=== PATIENT | female | born 1980 | race Caucasian/White ===

== ENCOUNTER 2016-09-01 04:04 | Emergency (ER) | payer BC ==
[~2016-09-01 04:04] MED LIST: ABILIFY PO; ABILIFY5 M1 PO; ABILIFY5 MG PO; ALBUTEROL SULF8.5 GM IH; ATENOLOL25 M1 PO; ATENOLOL25 MG PO; BENTYL20 MG PO; BUPROPION XL300 M1 PO; BUPROPION XL300 MG PO; BUSPIRONE PO; CELEBREX50 M1 PO; CPAP; CYCLOBENZAPRINE10 M1 PO; HYDROCODON-ACE1 EA16 PO; LAMICTAL PO; LAMICTAL100 M1 PO; LAMICTAL100 M2 PO; NEXIUM40 M1 PO; NORCO 5-325 TA1 EACH PO; PANTOPRAZOLE PO; PROAIR HFA8.5 GM; PROAIR HFA8.5 GM INH; PROTONIX40 M1 PO; PROVENTIL HFA6.7 G1; PROVENTIL HFA6.7 G1 INH; SYMBICORT 160-1 PUFF INH; TYLENOL EXTRA500 M1 PO; UNKNOWN ANTIBIOTIC PO
[2016-09-01] MEDS ORDERED: NEXIUM40 M1 PO (04:12)
[2016-09-01] MEDS ORDERED: ABILIFY10 M1 PO (04:12)
[2016-09-01] MEDS ORDERED: LAMICTAL200 M2 PO (04:12)
[2016-09-01] MEDS ORDERED: BUSPIRONE HCL15 M2 PO (04:12)
[2016-09-01] MEDS ORDERED: TENORMIN25 M1 PO (04:13)
[2016-09-01] MEDS ORDERED: WELLBUTRIN SR100 M2 PO (04:13)
[2016-09-01 04:35] LABS: URINE BILIRUBIN NEGATIVE (NEG); URINE BLOOD NEGATIVE (NEG); URINE GLUCOSE (UA) NEGATIVE (NEG); URINE KETONE NEGATIVE (NEG); URINE LEUKOCYTE ESTERASE NEGATIVE (NEG); URINE NITRITE NEGATIVE (NEG); URINE PROTEIN NEGATIVE (NEG); URINE SPECIFIC GRAVITY 1.005 (1.003-1.030)
[2016-09-01 04:36] LABS: URINE APPEARANCE CLEAR; URINE COLOR YELLOW
[2016-09-01 04:43] LABS: BASO % 0.3 % (0-2); EOS % 3.7 % (0-7); EOSINOPHIL ABSOLUTE COUNT 0.3 tho/cmm (0.0-0.7); HCT-HEMATOCRIT 35.6 % (34.0-49.0); HGB-HEMOGLOBIN 12.4 gm/dl (12.0-15.5); IMMATURE GRANULOCYTES ABSOLUTE 0.02 tho/cmm (0-0.03); IMMATURE GRANULOCYTES PERCENT 0.3 % (0-0.3); LYMPH % 35.6 % (20-45); LYMPH ABSOLUTE COUNT 2.8 tho/cmm (0.8-4.5); MCH (MEAN CORPUSCULAR HGB) 31.3 pg (28.0-32.0); MCHC MEAN CORPUSCULAR HGB CONC 34.8 % (32.0-36.0); MCV (MEAN CELL VOLUME) 89.9 fl (82.0-96.0); MEAN PLATELET VOLUME 10.2 cmc (9.4-12.4); MONO % 5.5 % (0-12); MONOCYTE ABSOLUTE COUNT 0.4 tho/cmm (0.0-1.2); NEUTROPHIL ABSOLUTE COUNT 4.3 tho/cmm (1.6-8.0); NEUTROPHIL-AUTOMATED 4.3 tho/cmm (1.6-8.0); NEUTROPHILS % 54.6 % (40-80); PLATELET COUNT 204 tho/cmm (150-450); RED BLOOD COUNT 3.96 mil/cmm (4.00-5.20); RED CELL DISTRIBUTION WIDTH 12.8 % (12.4-16.4); WHITE BLOOD COUNT 7.8 tho/cmm (4.0-10.0)
[2016-09-01 04:59] LABS: ALBUMIN 3.6 g/dl (3.5-5.0); ALKALINE PHOSPHATASE 50 U/L (33-138); ALT/SGPT 22 U/L (12-78); ANION GAP 12 mmol/L (0-20); AST/SGOT 14 U/L (10-40); BILIRUBIN,TOTAL 0.2 mg/dl (0-1.5); BLOOD UREA NITROGEN 15 mg/dl (6-24); CALCIUM 8.3 mg/dl (8.5-10.5); CARBON DIOXIDE-VENOUS 23 mmol/L (22-32); CHLORIDE 110 mmol/l (96-110); CREATININE 1.44 mg/dl (0.50-1.10); GLUCOSE 102 mg/dL (70-110); POTASSIUM 3.5 mmol/L (3.7-5.1); SODIUM 141 mmol/L (135-145); eGFR VALUE FOR BLACK 54 mL/Min
== END 2016-09-01 06:30 ==
LOC: EDMED 04:04
PROVIDERS: Emergency Medicine Emergency Medical Services
DX: R55 Syncope and collapse (principal); Z90.710 Acquired absence of both cervix and uterus; Z98.890 Other specified postprocedural states
CPT/HCPCS: J2405; J7030

== ENCOUNTER 2016-10-20 09:55 | Observation (INO) | payer BC ==
[~2016-10-20 09:55] MED LIST changes: +ABILIFY10 M1 PO; +BUSPIRONE HCL15 M2 PO; +LAMICTAL200 M2 PO; +TENORMIN25 M1 PO; +WELLBUTRIN SR100 M2 PO
[2016-10-20] MEDS ORDERED: WELLBUTRIN XL300 M3 PO (10:16)
[2016-10-20] MEDS ORDERED: BUSPIRONE HCL10 M2 PO (10:21)
[2016-10-20] MEDS ORDERED: MIDODRINE HCL2.5 M1 PO (10:26)
[2016-10-20] MEDS ORDERED: TOPAMAX25 M2 PO (10:27)
[2016-10-20] MEDS ORDERED: VITAMIN D250000 UNI1 PO (10:31)
[2016-10-20 10:49] LABS: BASO % 0.2 % (0-2); EOS % 3.2 % (0-7); EOSINOPHIL ABSOLUTE COUNT 0.4 tho/cmm (0.0-0.7); HCT-HEMATOCRIT 36.8 % (34.0-49.0); HGB-HEMOGLOBIN 12.6 gm/dl (12.0-15.5); IMMATURE GRANULOCYTES ABSOLUTE 0.03 tho/cmm (0-0.03); IMMATURE GRANULOCYTES PERCENT 0.3 % (0-0.3); LYMPH % 30.5 % (20-45); LYMPH ABSOLUTE COUNT 3.5 tho/cmm (0.8-4.5); MCHC MEAN CORPUSCULAR HGB CONC 34.2 % (32.0-36.0); MCV (MEAN CELL VOLUME) 90.6 fl (82.0-96.0); MEAN PLATELET VOLUME 10.1 cmc (9.4-12.4); MONO % 5.8 % (0-12); MONOCYTE ABSOLUTE COUNT 0.7 tho/cmm (0.0-1.2); PLATELET COUNT 171 tho/cmm (150-450); RED BLOOD COUNT 4.06 mil/cmm (4.00-5.20); RED CELL DISTRIBUTION WIDTH 12.9 % (12.4-16.4); WHITE BLOOD COUNT 11.6 tho/cmm (4.0-10.0)
[2016-10-20 10:56] LABS: PREGNANCY-SERUM NEGATIVE (NEGATIVE)
[2016-10-20 11:03] LABS: ANION GAP 11 mmol/L (0-20); BLOOD UREA NITROGEN 15 mg/dl (6-24); CALCIUM 9.2 mg/dl (8.5-10.5); CARBON DIOXIDE-VENOUS 26 mmol/L (22-32); CHLORIDE 108 mmol/l (96-110); CREATININE 1.38 mg/dl (0.50-1.10); GLUCOSE 98 mg/dL (70-110); POTASSIUM 3.9 mmol/L (3.7-5.1); SODIUM 141 mmol/L (135-145); eGFR VALUE FOR BLACK 57 mL/Min
[2016-10-20] MEDS ORDERED: FLONASE ALLERG9.9 ML (11:08)
== END 2016-10-21 09:40 ==
LOC: EDMED 09:55 → EMR2 14:57 → CAR1 17:37
PROVIDERS: Emergency Medicine; ADMIT Internal Medicine Interventional Cardiology
DX: R07.89 Other chest pain (principal); R06.02 Shortness of breath; F32.9 Major depressive disorder, single episode, unspecified; R00.0 Tachycardia, unspecified; R00.2 Palpitations; N18.9 Chronic kidney disease, unspecified; F17.200 Nicotine dependence, unspecified, uncomplicated; Z88.0 Allergy status to penicillin; Z88.6 Allergy status to analgesic agent; Z79.899 Other long term (current) drug therapy; Z95.810 Presence of automatic (implantable) cardiac defibrillator
CPT/HCPCS: G0378

== ENCOUNTER 2016-11-17 02:35 | Emergency (ER) | payer BC ==
[~2016-11-17 02:35] MED LIST changes: +BUSPIRONE HCL10 M2 PO; +FLONASE ALLERG9.9 ML; +MIDODRINE HCL2.5 M1 PO; +TOPAMAX25 M2 PO; +VITAMIN D250000 UNI1 PO; +WELLBUTRIN XL300 M3 PO
[2016-11-17] MEDS ORDERED: ADDERALL 2020 MG/TAB PO (02:53)
[2016-11-17 03:34] LABS: BASO % 0.2 % (0-2); EOS % 4.5 % (0-7); EOSINOPHIL ABSOLUTE COUNT 0.4 tho/cmm (0.0-0.7); HCT-HEMATOCRIT 37.4 % (34.0-49.0); HGB-HEMOGLOBIN 13.1 gm/dl (12.0-15.5); IMMATURE GRANULOCYTES ABSOLUTE 0.01 tho/cmm (0-0.03); IMMATURE GRANULOCYTES PERCENT 0.1 % (0-0.3); LYMPH % 26.8 % (20-45); LYMPH ABSOLUTE COUNT 2.5 tho/cmm (0.8-4.5); MCH (MEAN CORPUSCULAR HGB) 31.6 pg (28.0-32.0); MCV (MEAN CELL VOLUME) 90.3 fl (82.0-96.0); MEAN PLATELET VOLUME 10.2 cmc (9.4-12.4); MONO % 4.7 % (0-12); MONOCYTE ABSOLUTE COUNT 0.4 tho/cmm (0.0-1.2); NEUTROPHILS % 63.7 % (40-80); PLATELET COUNT 189 tho/cmm (150-450); RED BLOOD COUNT 4.14 mil/cmm (4.00-5.20); RED CELL DISTRIBUTION WIDTH 13.2 % (12.4-16.4); WHITE BLOOD COUNT 9.4 tho/cmm (4.0-10.0)
[2016-11-17 03:37] LABS: URINE BILIRUBIN NEGATIVE (NEG); URINE BLOOD NEGATIVE (NEG); URINE GLUCOSE (UA) NEGATIVE (NEG); URINE KETONE NEGATIVE (NEG); URINE LEUKOCYTE ESTERASE NEGATIVE (NEG); URINE NITRITE NEGATIVE (NEG); URINE PH 6.5 (5.0-8.0); URINE PROTEIN NEGATIVE (NEG)
[2016-11-17 03:40] LABS: URINE APPEARANCE CLEAR; URINE COLOR YELLOW
[2016-11-17 04:26] LABS: PREGNANCY-SERUM NEGATIVE (NEGATIVE)
[2016-11-17 04:28] LABS: ALB/GLOB RATIO 0.8 (0.8-2.0); ALBUMIN 3.5 g/dl (3.5-5.0); ALKALINE PHOSPHATASE 56 U/L (33-138); ALT/SGPT 29 U/L (12-78); ANION GAP 10 mmol/L (0-20); AST/SGOT 14 U/L (10-40); BILIRUBIN,TOTAL 0.2 mg/dl (0-1.5); BLOOD UREA NITROGEN 13 mg/dl (6-24); CALCIUM 8.5 mg/dl (8.5-10.5); CARBON DIOXIDE-VENOUS 26 mmol/L (22-32); CHLORIDE 108 mmol/l (96-110); CREATININE 1.56 mg/dl (0.50-1.10); GLUCOSE 98 mg/dL (70-110); LIPASE 150 U/L (73-393); POTASSIUM 3.9 mmol/L (3.7-5.1); SODIUM 140 mmol/L (135-145); eGFR VALUE FOR BLACK 49 mL/Min
[2016-11-17] MEDS ORDERED: ZOFRAN4 M2 PO (07:57)
[2016-11-17] MEDS ORDERED: TRAMADOL HCL50 M2 PO (07:57)
== END 2016-11-17 08:21 ==
LOC: EDMED 02:35
PROVIDERS: Emergency Medicine
DX: R10.11 Right upper quadrant pain (principal); I12.9 Hypertensive chronic kidney disease with stage 1 through stage 4 chronic kidney disease, or unspecified chronic kidney disease; N18.9 Chronic kidney disease, unspecified; K21.9 Gastro-esophageal reflux disease without esophagitis; J45.909 Unspecified asthma, uncomplicated; F17.210 Nicotine dependence, cigarettes, uncomplicated; Z90.710 Acquired absence of both cervix and uterus
CPT/HCPCS: J2270; J7030

== ENCOUNTER 2017-02-02 06:17 | Observation (INO) | payer BC ==
[~2017-02-02] VITALS: Ht 167.6 cm; Wt 80.0 kg
[~2017-02-02 06:17] MED LIST changes: +ADDERALL 2020 MG/TAB PO; +TRAMADOL HCL50 M2 PO; +ZOFRAN4 M2 PO
[2017-02-02 06:48] LABS: BASO % 0.2 % (0-2); EOS % 2.9 % (0-7); EOSINOPHIL ABSOLUTE COUNT 0.3 tho/cmm (0.0-0.7); HCT-HEMATOCRIT 35.9 % (34.0-49.0); HGB-HEMOGLOBIN 12.6 gm/dl (12.0-15.5); IMMATURE GRANULOCYTES ABSOLUTE 0.02 tho/cmm (0-0.03); IMMATURE GRANULOCYTES PERCENT 0.2 % (0-0.3); LYMPH ABSOLUTE COUNT 3.4 tho/cmm (0.8-4.5); MCH (MEAN CORPUSCULAR HGB) 31.8 pg (28.0-32.0); MCHC MEAN CORPUSCULAR HGB CONC 35.1 % (32.0-36.0); MCV (MEAN CELL VOLUME) 90.7 fl (82.0-96.0); MONO % 4.3 % (0-12); MONOCYTE ABSOLUTE COUNT 0.4 tho/cmm (0.0-1.2); NEUTROPHIL ABSOLUTE COUNT 4.7 tho/cmm (1.6-8.0); NEUTROPHIL-AUTOMATED 4.7 tho/cmm (1.6-8.0); NEUTROPHILS % 53.4 % (40-80); PLATELET COUNT 215 tho/cmm (150-450); RED BLOOD COUNT 3.96 mil/cmm (4.00-5.20); RED CELL DISTRIBUTION WIDTH 12.9 % (12.4-16.4); WHITE BLOOD COUNT 8.8 tho/cmm (4.0-10.0)
[2017-02-02 07:07] LABS: ANION GAP 11 mmol/L (0-20); BLOOD UREA NITROGEN 10 mg/dl (6-24); CALCIUM 8.7 mg/dl (8.5-10.5); CARBON DIOXIDE-VENOUS 25 mmol/L (22-32); CHLORIDE 107 mmol/l (96-110); CREATININE 1.45 mg/dl (0.50-1.10); GLUCOSE 95 mg/dL (70-110); MAGNESIUM 2.3 mg/dl (1.8-2.6); POTASSIUM 3.6 mmol/L (3.7-5.1); SODIUM 139 mmol/L (135-145); eGFR VALUE FOR BLACK 54 mL/Min
[2017-02-02 07:10] LABS: PREGNANCY-SERUM NEGATIVE (NEGATIVE)
[2017-02-02] MEDS ORDERED: ULTRAM50 M1 PO (09:04)
[2017-02-02] MEDS ORDERED: MECLIZINE HCL25 M3 PO (09:09)
[2017-02-02] MEDS ORDERED: ZITHROMAX250 M1 PO (09:09)
[2017-02-02] MEDS ORDERED: PROAIR HFA8.5 GM INH (09:11)
[2017-02-02] MEDS ORDERED: VITAMIN D5000 UNI1 PO (09:13)
[2017-02-03] MEDS ORDERED: CYMBALTA30 M1 PO (08:05)
[2017-02-03 11:02] LABS: ANION GAP 14 mmol/L (0-20); BLOOD UREA NITROGEN 10 mg/dl (6-24); CALCIUM 8.1 mg/dl (8.5-10.5); CARBON DIOXIDE-VENOUS 15 mmol/L (22-32); CHLORIDE 116 mmol/l (96-110); CREATININE 1.21 mg/dl (0.50-1.10); GLUCOSE 105 mg/dL (70-110); SODIUM 141 mmol/L (135-145); eGFR VALUE FOR BLACK 67 mL/Min
[2017-02-03 11:07] LABS: POTASSIUM 4.1 mmol/L (3.7-5.1)
== END 2017-02-03 11:25 ==
LOC: EDMED 06:17 → EMR2 08:52 → CAR1 14:05
PROVIDERS: Emergency Medicine; Physician Assistant; ADMIT Internal Medicine Interventional Cardiology
DX: R07.9 Chest pain, unspecified (principal); R00.2 Palpitations; K21.9 Gastro-esophageal reflux disease without esophagitis; N18.2 Chronic kidney disease, stage 2 (mild); F17.210 Nicotine dependence, cigarettes, uncomplicated; Z88.6 Allergy status to analgesic agent; Z88.0 Allergy status to penicillin; Z91.041 Radiographic dye allergy status; Z79.899 Other long term (current) drug therapy; Z90.711 Acquired absence of uterus with remaining cervical stump; Z98.51 Tubal ligation status
CPT/HCPCS: C8929; G0378; J7030